=== PATIENT | female | born 1955 | race Caucasian/White ===

== ENCOUNTER 2024-07-08 13:25 | Emergency (ER) | payer MEDICARE, BC, SELFPAY ==
[2024-07-08 13:27] VITALS: BP 154/74; PULSE 106; RESP 18; TEMP 36.6; O2SAT 100
[2024-07-08 14:55] VITALS: BP 124/73; PULSE 90; RESP 16; TEMP 36.8; O2SAT 98
--- NOTE | 2024-07-08 15:22 | EX.ED.UPPERE ---
HPI History of Present Illness Chief Complaint: Wound Informant: patient and spouse/S.O. Narrative Narrative: History rheumatoid arthritis on prednisone and hydroxychloroquine sent to urgent care right elbow redness swelling over the past week. She is no fevers or chills. Denies trauma. Started on the olecranon over the past days spread. Feels warm around the skin. No fevers or chills. She is seeing [facility] for foot surgery this past December. She is sent here from urgent care with concerning septic elbow. Prior similar symptoms: No PFSH PFSH Medical History Hammer toes of both feet Claudication of right upper extremity due to atherosclerosis Home Medications ?Medication ?Instructions ?Recorded ?Last Taken ?Type ascorbic acid (vitamin C) 500 mg 500 mg PO BID 01/03/24 Unknown History chewable tablet ferrous sulfate 325 mg (65 mg 325 mg PO DAILY 01/03/24 Unknown History iron) tablet hydroxychloroquine 100 mg tablet 100 mg PO BID 01/03/24 Unknown History multivitamin with minerals 1 tab PO DAILY 01/03/24 Unknown History (Multiple Vitamin-Minerals tablet) naproxen 500 mg tablet (Naprosyn) 500 mg PO BID PRN 01/03/24 Unknown History pantoprazole 40 mg tablet,delayed 40 mg PO BID 01/03/24 Unknown History release prednisolone 5 mg tablet 5 mg PO DAILY 01/03/24 Unknown History pyridoxine (vitamin B6) 100 mg 100 mg PO DAILY 01/03/24 Unknown History tablet amoxicillin 875 mg-potassium 875 mg PO Q12H #20 TABLETS 07/08/24 Unknown Rx clavulanate 125 mg tablet doxycycline monohydrate 100 mg 100 mg PO BID #20 CAPSULES 07/08/24 Unknown Rx capsule Allergy/AdvReac Type Severity Reaction Status Date / Time No Known Allergies Allergy Verified 07/08/24 13:26 Social History Smoking Status: Never smoker ROS ROS ED Constitutional Constitutional ED: Denies chills, fever(s) or sweats Eyes Eyes: Denies change in vision ENT ENT ED: Denies dysphagia or sore throat Cardiovascular Cardiovascular: Denies chest pain, leg edema, palpitations or racing heartbeat Respiratory/Chest Respiratory/Chest: Denies cough, dyspnea or dyspnea on exertion Gastrointestinal Gastrointestinal: Denies abdominal pain, diarrhea, nausea or vomiting Genitourinary Genitourinary ED: Denies dysuria, hematuria or urinary frequency Musculoskeletal Musculoskeletal: Reports extremity pain; Denies back pain or neck pain Integumentary Denies rash or wounds Neurologic Neurologic: Denies headache(s), paresthesias or weakness EXAM Physical Exam Const Vital Signs: 07/08/24 13:27 07/08/24 14:55 Temperature 97.9 F 98.3 F Temperature Source Temporal Oral Pulse Rate 106 H 90 Respiratory Rate 18 16 Blood Pressure 154/74 H 124/73 H Blood Pressure Mean 100 90 Pulse Ox 100 98 Oxygen Delivery Method Room Air Room Air Positive well nourished and well developed General Appearance ED: well developed and NAD HEENT Reports moist mucous membranes normocephalic and atraumatic Eyes EOMs intact bilaterally and conjunctivae normal General Eye ED: Yes normal appearance of both eyes Neck no lymphadenopathy and supple General: Negative for tenderness Chest Wall Chest: Negative for tenderness Resp normal respiratory effort and normal air movement Effort and Inspection: symmetric chest movement; Negative for respiratory distress Cardio regular rate, regular rhythm and no murmurs Peripheral Pulses: pulses 2+ throughout GI normal to inspection, nondistended, normoactive bowel sounds and non-tender Palpation: Negative for guarding or rebound tenderness present Back/Spine no CVA tenderness and no thoracic nor lumbar tenderness Extremity Extremity Narrative: Right upper extremity: No shoulder tenderness there was swelling at the olecranon bursa there is erythema proximal to the bursa along with distal to the mid forearm. Increasing skin warmth. Full range of motion of the elbow without any pain. Neuro oriented x3 and no sensory deficits noted Sensorium / Orientation: awake and alert Skin no rashes or lesions noted and no wounds MDM MDM MDM Narrative Medical decision making narrative: Interventions / MDM: Differential diagnosis: Olecranon bursitis, cellulitis Diagnosis considered but do not suspect: Septic elbow, however full range of motion without any pain in the joint. My EKG interpretation: N/A Imaging independently reviewed and interpreted by myself: Right elbow 3 views: No acute process, no joint effusion noted. Also read by radiology. External documents reviewed: N/A Test considered but not ordered:N/A ED course: Patient nontoxic. Exam concerns for infected olecranon bursitis she is afebrile however she is immunocompromise with her rheumatoid arthritis on medications. Will check labs with inflammatory markers. Right elbow x-ray. Patient covered with Ancef and vancomycin. Re-evaluation: stable Disposition discussed with patient/family/significant other: Case discussed with consulting clinician: N/A This note was generated with [employer] dictation software. It may contain incorrect words, spelling, and punctuation that were not noted in checking the note before signing. Discharge Plan Triage Chief Complaint: Wound ED Provider: Gerard Ho Dx/Rx/DC Orders Clinical Impression: Olecranon bursitis of right elbow, Cellulitis of forearm, right, History of rheumatoid arthritis Instructions: ED Bursitis Elbow Olecranon Prescriptions: New doxycycline monohydrate 100 mg capsule 100 mg PO BID Qty: 20 0RF amoxicillin-pot clavulanate 875-125 mg tablet 875 mg PO Q12H Qty: 20 0RF Primary Care Provider: HANG FERGUSON Referrals: Kush Schulz MD [Med Staff - Active Staff] - 2 Days HANG FERGUSON DO [Primary Care Provider] - Activity Restrictions/Additional Instructions: X-ray negative. White count of 10. Take antibiotic as prescribed. Discussed with Dr. Schulz in the emergency department. Called follow-up with the office in 2 days. If symptoms worsen or developing fevers, return to the ED for reevaluation. Print Language: Macedonian Disposition Disposition: Home, Self Care
--- NOTE | 2024-07-08 15:25 | RAD_ITS ---
STUDY: X-RAY - RIGHT ELBOW REASON FOR EXAM: Female, 69 years old. infection TECHNIQUE: 3 view(s) of the elbow. COMPARISON: None. FINDINGS: Normal visualized humerus, radius and ulna. Normal radiocapitellar and ulnotrochlear articulations. The soft tissue structures are unremarkable. There is no demonstrated fracture RAD/Elbow min 3 Views IMPRESSION: Normal x-ray examination of the elbow. Electronically Signed: Devin Hatch MD at 16:06 EDT ,
[2024-07-08 15:26] VITALS: BP 125/65; PULSE 88; RESP 18; O2SAT 98
[2024-07-08 15:45] VITALS: BMI 30.7
[2024-07-08 16:00] LABS: Anion Gap 6 (5-15); BUN 16 mg/dL (7-18); BUN/Creat Ratio 21.6 RATIO (10-20); Calcium,Total 9.5 mg/dL (8.5-10.1); Chloride 106 mmol/L (98-107); Creatinine, Serum 0.74 mg/dL (0.55-1.02); EST Glomerular Filtration Rate 83 mL/min (>60); Est Glom Filt Rate - Afr Amer 100 mL/min (>60); Estimated Creatinine Clearance 74.43 ml/min; Glucose 152 mg/dL (74-106); Potassium 4.2 mmol/L (3.5-5.1); Sodium Level 138 mmol/L (136-145)
[2024-07-08] MEDS: Cefazolin 2 GM in 0.9% Normal Saline (100mL Bag) 100 ML IV (16:12)
[2024-07-08 16:36] LABS: Absolute Lymphocyte Count 1.11 X10^3/uL (0.83-4.51); Basophil# 0.04 X10^3/uL; Basophil% 0.4 % (0-1); Eosinophil# 0.05 X10^3/uL; Eosinophils% 0.5 % (0-5); Hematocrit 40.7 % (37-47); Hemoglobin 13.2 g/dL (12.0-15.0); Lymphocyte # 1.11 X10^3/ul (0.83-4.51); Mean Corp Hgb Conc 32.4 g/dL (32-36); Mean Corpuscular Hgb 29.5 pg (27.0-32.0); Mean Corpuscular Volume 91.1 fL (81-99); Mean Platelet Vol. 11.5 fl (6.2-12.0); Monocyte# 0.84 X10^3/uL; Monocyte% 8.3 % (0-10); NRBC Flagged by Analyzer 0 % (0-5); Neutrophil # 8.04 X10^3/uL (2.7-7.7); Neutrophil % 79.4 % (47-70); Platelet Count 263 K/mm3 (150-450); RBC Distribution Width CV 12.7 % (11.6-14.6); RBC Distribution Width SD 42.1 fl (35.1-43.9); Red Blood Count 4.47 M/mm3 (4.2-5.4); White Blood Count 10.1 K/mm3 (4.4-11.0)
[2024-07-08 16:45] LABS: Differential Indicated SCAN CRITERIA MET
[2024-07-08 16:47] LABS: Erythrocyte Sedimentation Rate 32 mm/hr (0-30); Smudge Cells 79.4
[2024-07-08 17:00] VITALS: BP 129/71; PULSE 77; RESP 16; O2SAT 98
[2024-07-08] MEDS: Vancomycin HCl 2,000 MG in 0.9% Normal Saline (500mL Bag) 500 ML 250 MG IV (17:24)
[2024-07-08 18:26] VITALS: BP 124/77; PULSE 82; RESP 16; TEMP 36.7; O2SAT 99
[2024-07-08 19:22] VITALS: BP 121/68; PULSE 71; RESP 16; O2SAT 98
== END 2024-07-08 20:30 | disposition home or self-care (01) ==
PROVIDERS: Emergency Provider Emergency Medicine; PCP Family Medicine; Visit Provider Emergency Medicine
DX: Z79.899 Other long term (current) drug therapy (principal); M06.9 Rheumatoid arthritis, unspecified; L03.113 Cellulitis of right upper limb; M70.21 Olecranon bursitis, right elbow; Z79.52 Long term (current) use of systemic steroids
CPT/HCPCS: 73080; 80048; 85025; 85652; 86140; 96365; 96366; 96368; 99283; J7040; J7050; A4216

== ENCOUNTER 2025-02-01 12:10 | Observation (INO) | payer MEDICARE, BC, SELFPAY ==
[2025-02-01] VITALS (8 sets, daily range): BP systolic 116–164; BP diastolic 67–90; PULSE 65–83; RESP 14–20; TEMP 36.5–36.7; O2SAT 96–98; BMI 31.2; BMI 31.1
--- NOTE | 2025-02-01 12:38 | EDS_ITS ---
HPI <BLAIRE Larkin - Last Filed: 02/01/25 15:26> History of Present Illness Chief Complaint: Dizziness Narrative Narrative: Patient presenting today with dizziness that she describes as a room spinning sensation that started when she got out of bed at 5 AM this morning. She reports that last night she felt fine. She denies any history of vertigo or stroke. She reports that her symptoms are provoked when she tries to ambulate. She denies tinnitus and hearing loss. She reports that her right ear feels clogged. She denies recent illness, fevers, chills. She has a PMH of RA and GERD. PFSH <BLAIRE Larkin - Last Filed: 02/01/25 15:26> PFSH Medical History Hammer toes of both feet Claudication of right upper extremity due to atherosclerosis Home Medications ?Medication ?Instructions ?Recorded ?Last Taken ?Type ferrous sulfate 325 mg (65 mg 325 mg PO DAILY 01/03/24 02/01/25 History iron) tablet hydroxychloroquine 100 mg tablet 100 mg PO BID 4 02/01/25 History naproxen 500 mg tablet (Naprosyn) 500 mg PO BID 02/01/25 History MODUCARE 1 tab PO TID SUPPLEMENT 03/2302/01/25 History ascorbate calcium (vitamin C) 500 1 g PO DAILY 5 02/01/25 History mg tablet omeprazole 20 mg capsule,delayed 20 mg PO BID 02/01/25 02/01/25 History release prednisone 5 mg tablet 5 mg PO DAILY 02/01/2502/01 History vitamin E 268 mg (400 unit) capsule 268 mg PO DAILY Unknown History Allergy/AdvReac Type Severity Reaction Status Date / Time No Known Allergies Allergy Verified 02/01/25 12:11 Social History Smoking Status: Never smoker ROS <BLAIRE Larkin - Last Filed: 02/01/25 15:26> ROS ED Constitutional Constitutional ED: Denies chills or fever(s) ENT ENT ED: Reports vertigo and other Details: R sided ear fullness ; Denies hearing loss or tinnitus Cardiovascular Cardiovascular: Denies chest pain Respiratory/Chest Respiratory/Chest: Denies dyspnea Gastrointestinal Gastrointestinal: Reports nausea; Denies abdominal pain or vomiting Musculoskeletal Musculoskeletal: Denies arthralgias or myalgias Integumentary Denies rash Neurologic Neurologic: Reports dizziness; Denies paresthesias or weakness EXAM <BLAIRE Larkin - Last Filed: 02/01/25 15:26> Physical Exam Const Vital Signs: 02/01/25 12:11 02/01/25 13:04 02/01/25 14:00 Temperature 98.1 F Temperature Source Temporal Pulse Rate 81 70 Pulse Rate [Lying] 70 Pulse Rate [Sitting (for 1 minute prior to obtaining)] 81 Pulse Rate [Standing (for 1 minute prior to obtaining)] 82 Respiratory Rate 14 17 Blood Pressure 116/81 H 132/69 H Blood Pressure [Lying] 136/72 H Blood Pressure [Sitting (for 1 minute prior to obtaining)] 164/79 H Blood Pressure [Standing (for 1 minute prior to obtaining)] 145/81 H Blood Pressure Mean 92 90 Blood Pressure Mean [Lying] 93 Blood Pressure Mean [Sitting (for 1 minute prior to obtaining)] 107 Blood Pressure Mean [Standing (for 1 minute prior to obtaining)] 102 Pulse Ox 98 98 Oxygen Delivery Method Room Air 02/01/25 15:35 Temperature 98.1 F Temperature Source Pulse Rate 69 Pulse Rate [Lying] Pulse Rate [Sitting (for 1 minute prior to obtaining)] Pulse Rate [Standing (for 1 minute prior to obtaining)] Respiratory Rate 20 H Blood Pressure 129/81 H Blood Pressure [Lying] Blood Pressure [Sitting (for 1 minute prior to obtaining)] Blood Pressure [Standing (for 1 minute prior to obtaining)] Blood Pressure Mean 97 Blood Pressure Mean [Lying] Blood Pressure Mean [Sitting (for 1 minute prior to obtaining)] Blood Pressure Mean [Standing (for 1 minute prior to obtaining)] Pulse Ox 96 Oxygen Delivery Method Positive well nourished, well developed and no apparent distress General Appearance ED: well developed HEENT Reports normocephalic, head/scalp atraumatic and TM's clear Tympanic Membrane ED: Yes TM's clear bilateral Mouth ED: Yes moist mucous membranes normal Eyes PERRL and EOMs intact bilaterally Neck full ROM and supple Chest Wall inspection of chest normal Resp normal respiratory effort and clear to auscultation bilaterally Cardio regular rate and regular rhythm GI soft to palpation, non-tender, non-distended and no masses Back/Spine normal ROM and normal to inspection Extremity normal to inspection and full ROM Neuro oriented x3, CN's II-XII intact bilaterally, moves all extremities, no focal motor deficits and no sensory deficits noted Neuro Narrative: No truncal ataxia, negative test of skew, NIH 0 Sensorium / Orientation: awake and alert Motor Exam: strength 5/5 throughout Psych mental status grossly normal and thought process normal Skin no rashes or lesions noted and no wounds <Dr. Antonio Rhoades DO - Last Filed: 02/01/25 16:27> Physical Exam Const Vital Signs: 02/01/25 12:11 02/01/25 13:04 02/01/25 14:00 Temperature 98.1 F Temperature Source Temporal Pulse Rate 81 70 Pulse Rate [Lying] 70 Pulse Rate [Sitting (for 1 minute prior to obtaining)] 81 Pulse Rate [Standing (for 1 minute prior to obtaining)] 82 Respiratory Rate 14 17 Blood Pressure 116/81 H 132/69 H Blood Pressure [Lying] 136/72 H Blood Pressure [Sitting (for 1 minute prior to obtaining)] 164/79 H Blood Pressure [Standing (for 1 minute prior to obtaining)] 145/81 H Blood Pressure Mean 92 90 Blood Pressure Mean [Lying] 93 Blood Pressure Mean [Sitting (for 1 minute prior to obtaining)] 107 Blood Pressure Mean [Standing (for 1 minute prior to obtaining)] 102 Pulse Ox 98 98 Oxygen Delivery Method Room Air 02/01/25 15:35 Temperature 98.1 F Temperature Source Pulse Rate 69 Pulse Rate [Lying] Pulse Rate [Sitting (for 1 minute prior to obtaining)] Pulse Rate [Standing (for 1 minute prior to obtaining)] Respiratory Rate 20 H Blood Pressure 129/81 H Blood Pressure [Lying] Blood Pressure [Sitting (for 1 minute prior to obtaining)] Blood Pressure [Standing (for 1 minute prior to obtaining)] Blood Pressure Mean 97 Blood Pressure Mean [Lying] Blood Pressure Mean [Sitting (for 1 minute prior to obtaining)] Blood Pressure Mean [Standing (for 1 minute prior to obtaining)] Pulse Ox 96 Oxygen Delivery Method MDM <BLAIRE Larkin - Last Filed: 02/01/25 15:26> [facility] MDM Narrative Medical decision making narrative: Patient presenting today with dizziness that started around 5 AM when she woke up to go to the bathroom. She reports that it is provoked with ambulation. I did perform a Crescent-Hallpike maneuver on her, she was positive on the left, I did see slight brief nystagmus but it is hard to say what direction it was going. She was negative on the right, I then performed the maneuver again on the left and she was then negative. She had a negative test of skew, otherwise NIH 0. The attending ED physician did have a different exam and had a positive Crescent- Hallpike on the right but again she was inconsistent. Given this, head CT/neck CTA will be obtained to assess for intracranial abnormality. Basic labs will be obtained. Patient will be given IV fluids and meclizine. Orthostatic vital signs will be obtained prior to fluid resuscitation. Her CBC, BMP, troponin, and UA are unremarkable. CT/CTA negative for acute findings. On reexamination she does report some improvement of her symptoms, however she does still feel slightly dizzy. I did ambulate her in the room and she reported feeling somewhat off balance but improved with the meclizine and fluids. When walking to the bathroom she did hit the door frame with her shoulder, however the remainder of her walking was without ataxia. Given we cannot definitively say this is peripheral I do feel she would benefit from further workup for her vertigo. I spoke with hospitalist and patient admitted in stable condition. Supervisory Physician Note Patient was seen and examined with the Advanced Practice Provider. Nursing notes and vital signs have been reviewed. Pertinent old records have been reviewed. I agree with the essential elements of the MERISSA's history, physical exam, assessment, and plan. The differential diagnosis and management options were discussed with the MERISSA. I participated in determining and agree with the management, procedures, final impression and disposition as documented. See changes noted by me. Please see addendum or separate note for any additional details. 83-year-old female with past medical history GERD, rheumatoid arthritis on prednisone and hydroxychloroquine presents for evaluation of dizziness. Last known normal was approximately 10 PM last night when she went to bed. Patient states that she woke up this morning with room spinning. She states since then the room spinning has resolved and now she describes more of a wavelike dizziness. Dizziness is associated with ambulation and movement. She denies any fever, chills, URI symptoms, cough, chest pain, Markel pain, nausea, vomiting, dysuria. Endorses acid reflux. Denies any focal deficits, numbness/tingling, weakness, hearing loss, tinnitus, vision changes. Gen: A&O x3, NAD Head: Normocephalic, atraumatic Eyes: No sclera icterus, conjunctiva clear, PERRL, EOMI ENT: Tympanic membranes clear bilaterally, posterior oropharynx unremarkable, moist mucous membranes, No facial asymmetry Neck: Trachea midline, No JVD, no carotid bruit CV: RRR, no murmurs, no peripheral edema Resp: Lungs CTA BL, no w/r/c GI: Abd soft, non-distended, non-tender, no r/r/g Musc: Full ROM, no deformity, strength +5/5 in all extremities, no pronator drift, no ataxia with [id number] testing or max to heel testing, patient is unsteady on her feet with ambulation she states she feels like she is walking on a wave she sways left and right periodically and it is not consistent or one- sided Skin: Warm, dry, intact Neuro: Alert, oriented, grossly intact, sensation intact, no focal deficits Psych: Cooperative, appropriate mood and affect -When being changed from a sitting to lying down position patient endorses dizziness however no nystagmus. Dizziness quickly resolves. Once when I had her lying down and looking to the right she did have what appeared to be slight leftward beating nystagmus which she felt like she was swaying to the right however this quickly resolved and was not reproducible again on exam. Exam is inconsistent. On PA's exam she had what she thought was slight nystagmus when head turned to the left. Was not reproducible again for her as well. Lab Data Attestation: I reviewed the patient's lab results. Labs: Laboratory Results - last 24 hr 02/01/25 02/01/25 13:05 13:16 WBC 7.2 RBC 4.41 Hgb 13.1 Hct 39.7 MCV 90.0 MCH 29.7 MCHC 33.0 RDW Std Deviation 42.6 RDW Coeff of Emmanuel 12.9 Plt Count 272 MPV 10.7 Immature Gran % (Auto) 0.300 Neut % (Auto) 78.5 H Lymph % (Auto) 12.3 L Hand % (Auto) 6.6 Eos % (Auto) 1.7 Baso % (Auto) 0.6 Absolute Neuts (auto) 5.6 Absolute Lymphs (auto) 0.88 Nucleated RBC % 0 Sodium 140 Potassium 4.4 Chloride 106 Carbon Dioxide 22.9 Anion Gap 11 BUN 15 Creatinine 0.81 Estim Creat Clear Calc 74.23 Est GFR (MDRD) Non-Af 79 BUN/Creatinine Ratio 18.2 Glucose 97 Calcium 9.3 Troponin T High Sens 9 Urine Color Straw Urine Clarity Clear Urine pH 7.0 Ur Specific [place] 1.005 Urine Protein 15 H Urine Glucose (UA) Normal Urine Ketones Negative Urine Occult Blood Negative Urine Nitrite Negative Urine Bilirubin Negative Urine Urobilinogen Normal Ur Leukocyte Esterase 500 H Urine RBC 0-5 SEEN Urine WBC 5-10 SEEN Ur Squamous Epith Cells 0 SEEN Urine Bacteria RARE Urine Mucus 0 SEEN Radiography X-Ray: Read by ED Physician Diagnostic Testing: Clinical Impression(s) from Imaging Studies Brain CT 02/01/25 12:48 IMPRESSION: 1. No acute intracranial finding. 2. Findings compatible with acute left maxillary sinusitis. Reading Location: [facility] Head/Neck CTA 02/01/25 12:48 IMPRESSION: 1. No hemodynamically significant large vessel occlusion, aneurysm or AVM. 2. 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 Reading Location: [facility] Chest X-Ray 02/01/25 13:45 IMPRESSION: No acute process. Reading [facility] EKG Initial EKG: Comments: 60 bpm, normal sinus rhythm, no ST elevation, interpreted by attending ED physician <Dr. Antonio Rhoades, DO - Last Filed: 02/01/25 16:27> [facility] Narrative Medical decision making narrative: Patient presenting today with dizziness that started around 5 AM when she woke up to go to the bathroom. She reports that it is provoked with ambulation. I did perform a Umberto-Hallpike maneuver on her, she was positive on the left, I did see slight brief nystagmus but it is hard to say what direction it was going. She was negative on the right, I then performed the maneuver again on the left and she was then negative. She had a negative test of skew, otherwise NIH 0. The attending ED physician did have a different exam and had a positive Umberto- Hallpike on the right but again she was inconsistent. Given this, head CT/neck CTA will be obtained to assess for intracranial abnormality. Basic labs will be obtained. Patient will be given IV fluids and meclizine. Orthostatic vital signs will be obtained prior to fluid resuscitation. Her CBC, BMP, troponin, and UA are unremarkable. CT/CTA negative for acute findings. On reexamination she does report some improvement of her symptoms, however she does still feel slightly dizzy. I did ambulate her in the room and she reported feeling somewhat off balance but improved with the meclizine and fluids. When walking to the bathroom she did hit the door frame with her shoulder, however the remainder of her walking was without ataxia. Given we cannot definitively say this is peripheral I do feel she would benefit from further workup for her vertigo. I spoke with hospitalist and patient admitted in stable condition. Supervisory Physician Note Patient was seen and examined with the Advanced Practice Provider. Nursing notes and vital signs have been reviewed. Pertinent old records have been reviewed. I agree with the essential elements of the MERISSA's history, physical exam, assessment, and plan. The differential diagnosis and management options were discussed with the MERISSA. I participated in determining and agree with the management, procedures, final impression and disposition as documented. See changes noted by me. Please see addendum or separate note for any additional details. 83-year-old female with past medical history GERD, rheumatoid arthritis on prednisone and hydroxychloroquine presents for evaluation of dizziness. Last known normal was approximately 10 PM last night when she went to bed. Patient states that she woke up this morning with room spinning. She states since then the room spinning has resolved and now she describes more of a wavelike dizz iness. Dizziness is associated with ambulation and movement. She denies any fever, chills, URI symptoms, cough, chest pain, Markel pain, nausea, vomiting, dysuria. Endorses acid reflux. Denies any focal deficits, numbness/tingling, weakness, hearing loss, tinnitus, vision changes. Gen: A&O x3, NAD Head: Normocephalic, atraumatic Eyes: No sclera icterus, conjunctiva clear, PERRL, EOMI ENT: Tympanic membranes clear bilaterally, posterior oropharynx unremarkable, moist mucous membranes, No facial asymmetry Neck: Trachea midline, No JVD, no carotid bruit CV: RRR, no murmurs, no peripheral edema Resp: Lungs CTA BL, no w/r/c GI: Abd soft, non-distended, non-tender, no r/r/g Musc: Full ROM, no deformity, strength +5/5 in all extremities, no pronator drift, no ataxia with [id number] testing or max to heel testing, patient is unsteady on her feet with ambulation she states she feels like she is walking on a wave she sways left and right periodically and it is not consistent or one-si ded Skin: Warm, dry, intact Neuro: Alert, oriented, grossly intact, sensation intact, no focal deficits Psych: Cooperative, appropriate mood and affect -When being changed from a sitting to lying down position patient endorses dizziness however no nystagmus. Dizziness quickly resolves. Once when I had her lying down and looking to the right she did have what appeared to be slight leftward beating nystagmus which she felt like she was swaying to the right however this quickly resolved and was not reproducible again on exam. Exam is inconsistent. On PA's exam she had what she thought was slight nystagmus when head turned to the left. Was not reproducible again for her as well. Differential diagnosis includes but is not limited to orthostatic hypotension, dehydration, BRITTON, vertigo, posterior CVA, arrhythmia, ACS, UTI. Orthostatic vital signs were obtained. NS bolus ordered with meclizine and Zofran. EKG was personally reviewed by me, ED physician. Normal sinus rhythm without any acute changes. Heart rate 68. Chest x-ray was personally reviewed by me, ED physician. Without pneumonia, effusion, electrolyte abnormality, pneumothorax. CBC without leukocytosis or anemia. BMP unremarkable. Troponin unremarkable. UA negative for UTI. CT brain negative for acute intercranial finding. Finding are compatible with acute left maxillary sinusitis. Patient not endorsing any sinus pressure or URI type symptoms. This does not correlate clinically. CTA of the head and neck shows no LVO, aneurysm, or AVM. Patient has a for short segment occlusion of the left subclavian artery just distal to its origin with distal reconstruction, appears chronic in nature. On reevaluation, patient states her symptoms have improved however still present. She ambulated down the hallway and is still endorsing some dizziness. She states she is not at her baseline. She is also endorsing some posterior head pressure. At this point in time we cannot definitively say if this is peripheral. I do think she would benefit from further workup for her dizziness/vertigo. After long discussion with the patient as well as her , patient agrees to the plan. Patient admitted to the hospitalist service. Impression: 1. Dizziness Lab Data Labs: Laboratory Results - last 24 hr 02/01/25 02/01/25 13:05 13:16 WBC 7.2 RBC 4.41 Hgb 13.1 Hct 39.7 MCV 90.0 MCH 29.7 MCHC 33.0 RDW Std Deviation 42.6 RDW Coeff of Emmanuel 12.9 Plt Count 272 MPV 10.7 Immature Gran % (Auto) 0.300 Neut % (Auto) 78.5 H Lymph % (Auto) 12.3 L Hand % (Auto) 6.6 Eos % (Auto) 1.7 Baso % (Auto) 0.6 Absolute Neuts (auto) 5.6 Absolute Lymphs (auto) 0.88 Nucleated RBC % 0 Sodium 140 Potassium 4.4 Chloride 106 Carbon Dioxide 22.9 Anion Gap 11 BUN 15 Creatinine 0.81 Estim Creat Clear Calc 74.23 Est GFR (MDRD) Non-Af 79 BUN/Creatinine Ratio 18.2 Glucose 97 Calcium 9.3 Troponin T High Sens 9 Urine Color Straw Urine Clarity Clear Urine pH 7.0 Ur Specific [place] 1.005 Urine Protein 15 H Urine Glucose (UA) Normal Urine Ketones Negative Urine Occult Blood Negative Urine Nitrite Negative Urine Bilirubin Negative Urine Urobilinogen Normal Ur Leukocyte Esterase 500 H Urine RBC 0-5 SEEN Urine WBC 5-10 SEEN Ur Squamous Epith Cells 0 SEEN Urine Bacteria RARE Urine Mucus 0 SEEN Radiography Diagnostic Testing: Clinical Impression(s) from Imaging Studies Brain CT 02/01/25 12:48 IMPRESSION: 1. No acute intracranial finding. 2. Findings compatible with acute left maxillary sinusitis. Reading Location: [facility] Head/Neck CTA 02/01/25 12:48 IMPRESSION: 1. No hemodynamically significant large vessel occlusion, aneurysm or AVM. 2. 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 Reading Location: [facility] Chest X-Ray 02/01/25 13:45 IMPRESSION: No acute process. Reading [facility] Discharge Plan Dx/Rx/DC Orders Clinical Impression: Dizziness Disposition Disposition: Acute Care Hospital [facility] Discharge Date/Time: 02/01/25 16:25
--- NOTE | 2025-02-01 12:48 | CT_ITS ---
EXAM: BRAIN/HEAD WITHOUT CONTRAST CLINICAL HISTORY: 69 y/o F with DIZZINESS. COMPARISON: None. TECHNIQUE: Routine CT imaging of the head without IV contrast. Additional multiplanar reformats were obtained. Dose reduction techniques were used including intermediate exposure control (AEC),iterative reconstruction technique, and/or mA and/or KV dose adjustments based on patient's size. FINDINGS: The ventricles, sulci and cisterns are normal for patient age. There is no evidence of intracranial hemorrhage or herniation. There is no midline shift, mass effect, or extra-axial collection. Mild patchy supratentorial white matter hypodensities. The shell-white matter interfaces are otherwise maintained. Near-complete opacification with layering secretions within the left maxillary sinus. Additional opacification of the left maxillary ostium the mastoid air cells and visualized paranasal sinuses are otherwise well-aerated. The orbits are unremarkable. No acute calvarial fracture or scalp hematoma. CT/Brain/Head without Contrast IMPRESSION: 1. No acute intracranial finding. 2. Findings compatible with acute left maxillary sinusitis. Reading Location: [id number]
--- NOTE | 2025-02-01 12:48 | CT_ITS ---
PROCEDURE: CTA HEAD AND NECK W/ CONTRAST 02/01/2025 REASON FOR EXAM: DIZZINESS TECHNIQUE: CTA imaging of the head and neck from the aortic arch to the skull vertex with intravenous contrast. Coronal and Sagittal reconstruction series were provided. 3D, 3D post processing, 3D reconstructions, Maximum intensity projection (MIPs) Volume rendering and Shaded surface rendering was provided. CONTRAST: Isovue 370 VOLUME: 100 mL One or more dose reduction techniques were used (e.g., Automated exposure control, adjustment of the mA and/or kV according to patient size, use of iterative reconstruction technique). RADIATION DOSE SUMMARY: CTDlvol: 60 mGy DLP: 1500 mGycm COMPARISON: Same day CT head. FINDINGS: Three-vessel aortic arch with short-segment non-opacification of the left subclavian artery just off the arch origin measuring approximately 1.2 cm (coronal image 58). There is distal reconstitution via retrograde filling. Mild calcific plaque of the right vertebral artery office origin without focal stenosis or occlusion. The bilateral vertebral arteries are widely patent. The right cervical common carotid and internal carotid arteries are widely patent without focal stenosis by NASCET criteria. Mild calcific plaque of the left carotid bulb and ICA resulting in less than 50% narrowing by NASCET criteria. Mild calcific plaque of the bilateral carotid siphons without focal stenosis or occlusion. The bilateral anterior, middle and posterior cerebral arteries are widely patent. No aneurysm or arteriovenous malformation. Major venous structures: Unremarkable. Other findings: Cervical spondylosis. CT/CTA Head AND Neck W/ Contrast IMPRESSION: 1. No hemodynamically significant large vessel occlusion, aneurysm or AVM. 2. 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 Reading Location: [id number]
--- NOTE | 2025-02-01 12:51 | EKG12_ITS ---
Test Reason : DIZZINESS Blood Pressure : */* mmHG Vent. Rate : 68 BPM Atrial Rate : 68 BPM P-R Int : 152 ms QRS Dur : 76 ms QT Int : 398 ms P-R-T Axes : 39 6 35 degrees QTcB Int : 423 ms Normal sinus rhythm Normal ECG Confirmed by ZAK HENRIQUEZ, ANA ([id number]), editor school photograph DAPHNE NUÑEZ ([id number]) on 02/03/2025 5:59:29 AM Referred By: Antonio Rhoades Confirmed By: ANA CRESPO MD
[2025-02-01] MEDS: Meclizine HCl 25 MG Tablet PO (12:54)
[2025-02-01] MEDS: Ondansetron 4 MG/2 ML Vial IV (12:55)
[2025-02-01] MEDS: 0.9% Normal Saline (1000mL) 1,000 ML 1000 ML IV (12:57)
[2025-02-01 13:12] LABS: Absolute Lymphocyte Count 0.88 X10^3/uL (0.83-4.51); Absolute Neutrophil Count 5.6 X10^3/uL (2.0-7.7); Basophil# 0.04 X10^3/uL; Basophil% 0.6 % (0-1); Eosinophil# 0.12 X10^3/uL; Eosinophils% 1.7 % (0-5); Hematocrit 39.7 % (37-47); Hemoglobin 13.1 g/dL (12.0-15.0); Lymphocyte # 0.88 X10^3/ul (0.83-4.51); Lymphocyte % 12.3 % (19-41); Mean Corpuscular Hgb 29.7 pg (27.0-32.0); Mean Platelet Vol. 10.7 fl (6.2-12.0); Monocyte# 0.47 X10^3/uL; Monocyte% 6.6 % (0-10); NRBC Flagged by Analyzer 0 % (0-5); Neutrophil # 5.63 X10^3/uL (2.7-7.7); Neutrophil % 78.5 % (47-70); Platelet Count 272 K/mm3 (150-450); RBC Distribution Width CV 12.9 % (11.6-14.6); RBC Distribution Width SD 42.6 fl (35.1-43.9); Red Blood Count 4.41 M/mm3 (4.2-5.4); White Blood Count 7.2 K/mm3 (4.4-11.0)
[2025-02-01 13:21] LABS: Mucous, Urine 0 SEEN /hpf (<or=2+); Squamous Epithelial Cells - UA 0 SEEN /hpf (5-10)
[2025-02-01 13:23] LABS: Color, Urine Straw (Yellow); Glucose, Dipstick Normal (Normal); Ketone-Dipstick Negative (Negative); Leukocyte Esterase-Dipstick 500 /ul (Negative); Nitrite-Dipstick Negative (Negative); Occult Blood-Urine Negative /ul (Negative); Protein-Dipstick 15 mg/dl (Negative); Specific Gravity, Urine 1.005 (1.002-1.030); Urine Bilirubin Dipstick Negative (Negative); Urine Clarity Clear (Clear); Urine Urobilinogen Normal (Normal)
[2025-02-01 13:31] LABS: Troponin T High Sensitivity 9 ng/L (<=14)
[2025-02-01 13:32] LABS: Anion Gap 11 (5-15); BUN 15 mg/dL (4-19); BUN/Creat Ratio 18.2 RATIO (10-20); Calcium,Total 9.3 mg/dL (7.6-11.0); Carbon Dioxide 22.9 mmol/L (21.0-32.0); Chloride 106 mmol/L (98-108); Creatinine, Serum 0.81 mg/dL (0.70-1.20); EST Glomerular Filtration Rate 79 (>60); Estimated Creatinine Clearance 74.23 ml/min (50-250); Glucose 97 mg/dL (70-99); Potassium 4.4 mmol/L (3.3-5.1); Sodium Level 140 mmol/L (133-145)
[2025-02-01] MEDS: Famotidine 200 MG/20 ML MDV 20 MG in 0.9% Normal Saline (Pres. free 8 ML 300 MG IV (13:32)
--- NOTE | 2025-02-01 13:45 | RAD_ITS ---
PROCEDURE: CHEST PA AND LATERAL 02/01/2025 REASON FOR EXAM: DIZZINESS TECHNIQUE: Frontal and lateral views of the chest. COMPARISON: None. FINDINGS: Hardware: None. Heart: Normal size and appearance Mediastinum: Normal contour Lungs: Lungs are clear. No interstitial thickening. Bones: Unremarkable RAD/Chest PA and Lateral IMPRESSION: No acute process. Reading [facility]
[2025-02-01 13:56] LABS: Bacteria RARE /hpf (None Seen); Red Blood Cells-Urine 0-5 SEEN /hpf (0-5); White Blood Cells 5-10 SEEN /hpf (0-5)
--- NOTE | 2025-02-01 15:20 | PCM.HP.STD ---
HPI - General General Date of Admission: 02/01/25 Date of Service: 02/01/25 Chief Complaint: dizziness HPI Narrative KAREN CAMERON, is a 69 F with a PMH as outlined who presents via the ED on 02/01/2025 with a complaint of dizziness which started on the morning of admission at ~ 5am. She described it as the room spinning around. She did not have any such history of dizziness. She denied any history of stroke. She denied any headache, palpitations, dizziness, nausea, vomiting, blurred vision, slurred speech, numbness, tingling or any other symptoms. She has not had any such symptoms before. She said it did worsen with position. Review of systems is otherwise negative. Vitals in the ED were BP of 132/69, MA of 70, RR of 17 and oxygen sats of 98% on room air. CT of the brain showed no acute intracranial pathology. 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 CBC showed Hb of 13.1, wbc of 7.2, and platelets of 272. Chemistry showed sodium of 140, potassium of 4.4 and bicarb of 22.9. Cr was 0.81. EKG showed no acute ST changes and showed normal sinus rhythm. She is being admitted to be managed for dizziness and vertigo to rule out a stroke. [facility] Medical History Hammer toes of both feet Claudication of right upper extremity due to atherosclerosis Home Medications ?Medication ?Instructions ?Recorded ?Last Taken ?Type ferrous sulfate 325 mg (65 mg 325 mg PO DAILY 01/03/24 02/01/25 History iron) tablet hydroxychloroquine 100 mg tablet 100 mg PO BID 01/03/24 02/01/25 History naproxen 500 mg tablet (Naprosyn) 500 mg PO BID 01/03/24 02/01/25 History MODUCARE 1 tab PO TID SUPPLEMENT 02/01/25 02/01/25 History ascorbate calcium (vitamin C) 500 1 g PO DAILY 02/01/25 02/01/25 History mg tablet omeprazole 20 mg capsule,delayed 20 mg PO BID 02/01/25 02/01/25 History release prednisone 5 mg tablet 5 mg PO DAILY 02/01/25 02/01/25 History vitamin E 268 mg (400 unit) capsule 268 mg PO DAILY 02/01/25 Unknown History Allergy/AdvReac Type Severity Reaction Status Date / Time No Known Allergies Allergy Verified 02/01/25 12:11 Social History Smoking Status: Never smoker ROS Review of Systems ROS Unobtainable: Denies due to encephalopathy Constitutional Constitutional: Denies anorexia, chills, fatigue, fever(s), malaise or weakness Eyes Eyes: Denies change in vision ENT HEENT: Denies dysphagia, headache(s) or sore throat Cardiovascular Cardiovascular: Reports lightheadedness; Denies chest pain, dyspnea on exertion, edema, orthopnea, palpitations, paroxysmal nocturnal dyspnea, rapid heart rate or syncope Respiratory/Chest Respiratory/Chest: Denies cough, dyspnea, productive cough, shortness of breath at rest or shortness of breath with exertion Gastrointestinal Gastrointestinal: Denies abdominal pain, constipation, diarrhea, nausea or vomiting Genitourinary Genitourinary: Denies burning urination or dysuria Musculoskeletal Musculoskeletal: Denies arthralgias Neurologic Neurologic: Reports dizziness; Denies confusion, focal weakness, headache(s), numbness, seizure-like activity, seizures or syncope Psychiatric Psychiatric: Denies anxiety or depression Endocrine Endocrinology: Denies change in body appearance Hematologic/Lymphatic Hematologic/Lymphatic: Denies anemia Vital Signs Vital Signs Vital Signs: 02/01/25 12:11 02/01/25 13:04 02/01/25 14:00 Temperature 98.1 F Temperature Source Temporal Pulse Rate 81 70 Pulse Rate [Lying] 70 Pulse Rate [Sitting (for 1 minute prior to obtaining)] 81 Pulse Rate [Standing (for 1 minute prior to obtaining)] 82 Respiratory Rate 14 17 Blood Pressure 116/81 H 132/69 H Blood Pressure [Lying] 136/72 H Blood Pressure [Sitting (for 1 minute prior to obtaining)] 164/79 H Blood Pressure [Standing (for 1 minute prior to obtaining)] 145/81 H Blood Pressure Mean 92 90 Blood Pressure Mean [Lying] 93 Blood Pressure Mean [Sitting (for 1 minute prior to obtaining)] 107 Blood Pressure Mean [Standing (for 1 minute prior to obtaining)] 102 Pulse Ox 98 98 Oxygen Delivery Method Room Air Weight Weight: 193 lb 12.581 oz Body Mass Index (BMI) 31.2 Physical Exam Const alert, oriented x3 and no apparent distress General Appearance: cooperative HEENT normocephalic, head/scalp atraumatic, hearing grossly normal bilaterally, moist oral mucous membranes and oropharynx normal Mouth: oral and palatal mucosa normal Eyes PERRL, EOMs intact bilaterally and conjunctivae normal Neck no lymphadenopathy and supple Resp normal respiratory effort, no retractions, no use of accessory muscles and clear to auscultation bilaterally Cardio regular rate, regular rhythm, S1 normal heart sound, S2 normal heart sound and no murmurs GI normal to inspection, nondistended, normoactive bowel sounds, soft to palpation, non-tender and non-distended Extremity normal to inspection, full ROM and no clubbing, cyanosis or edema Neuro oriented x3, CN's II-XII intact bilaterally, moves all extremities and no focal motor deficits Sensorium / Orientation: awake and alert Motor Exam: strength 5/5 throughout Psych affect normal Results Lab / Micro Data 02/02/25 03:19 02/02/25 03:19 Labs: Laboratory Results - last 24 hr 02/01/25 13:05: WBC 7.2, RBC 4.41, Hgb 13.1, Hct 39.7, MCV 90.0, MCH 29.7, MCHC 33.0, RDW Std Deviation 42.6, RDW Coeff of Emmanuel 12.9, Plt Count 272, MPV 10.7, Immature Gran % (Auto) 0.300, Neut % (Auto) 78.5 H, Lymph % (Auto) 12.3 L, [place] % (Auto) 6.6, Eos % (Auto) 1.7, Baso % (Auto) 0.6, Absolute Neuts (auto) 5.6, Absolute Lymphs (auto) 0.88, Nucleated RBC % 0, Sodium 140, Potassium 4.4, Chloride 106, Carbon Dioxide 22.9, Anion Gap 11, BUN 15, Creatinine 0.81, Estim Creat Clear Calc 74.23, Est GFR (MDRD) Non-Af 79, BUN/Creatinine Ratio 18.2, Glucose 97, Calcium 9.3, Troponin T High Sens 9 02/01/25 13:16: Urine Color Straw, Urine Clarity Clear, Urine pH 7.0, Ur Specific [place] 1.005, Urine Protein 15 H, Urine Glucose (UA) Normal, Urine Ketones Negative, Urine Occult Blood Negative, Urine Nitrite Negative, Urine Bilirubin Negative, Urine Urobilinogen Normal, Ur Leukocyte Esterase 500 H, Urine RBC 0-5 SEEN, Urine WBC 5-10 SEEN, Ur Squamous Epith Cells 0 SEEN, Urine Bacteria RARE, Urine Mucus 0 SEEN Imaging Radiology Impression Brain CT 02/01/25 12:48 IMPRESSION: 1. No acute intracranial finding. 2. Findings compatible with acute left maxillary sinusitis. Reading Location: [facility] Head/Neck CTA 02/01/25 12:48 IMPRESSION: 1. No hemodynamically significant large vessel occlusion, aneurysm or AVM. 2. 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 Reading Location: [facility] Chest X-Ray 02/01/25 13:45 IMPRESSION: No acute process. Reading [facility] Assessment & Plan Assessment/Plan (1) Dizziness: PLAN: Plan #Dizziness and vertigo, to rule out a stroke admit to PCU under observation started feeling dizzy at ~ 5am this morning. [place] like everything was spinning around her. She has not had such symptoms before and denies any history of a stroke. CT of the brain showed no acute intracranial pathology. CTA of the head and neck showed no hemodynamically significant stenosis. Order MRI of the brain per stroke protocol. Monitor NIH stroke scale P.o. aspirin 81 mg daily. Check lipid panel and A1c. High intensity statin. Get 2D echo. consult neurology #Rheumatoid arthritis: On hydroxychloroquine and prednisone. Also on pyridoxine. #GERD: On PPI Acute prophylaxis: SCDs CODE STATUS:full code patient and advised about different types of code status, including full code, DNRCC and DNRCCA. Patient elects to be full code Charges/Coding Visit Charges Inpatient E&M: 92025 Init Hosp L2 Procedures Hospitalists Procedures: 39471 Advncd Care Plan 30 Min
--- NOTE | 2025-02-01 16:20 | CASEMGMT ---
Care Management Face to Face with patient for initial transition planning/care coordination assessment in the ED.? This telegraphic typewriter repairer introduced self and role at [facility]. Patient alert and oriented. Patient willing to participate in assessment and is able to answer all questions appropriately.? Care providers, pharmacy, and demographics verified. Patient?s at patient?s bedside. Admitting Diagnosis: Dizziness Other diagnosis history: Including but may not be limited to: Claudication of right upper extremity due to atherosclerosis. PCP: Dr. Bozena Sweet Specialists: None Preferred Pharmacy: [facility] Insurance: Medicare, Part A and B and [place]. Prescription Benefit: Well [employer] Living Will/HPOA: ?Patient denied having a Living Will but stated a preference of being a full-code and identified her , twin as her POA however stated she does not know where the paperwork is at this time.? Patient denied a desire to complete Advanced Care Directives during this admission. LNOK: Patient?s , son Terrell, who resides in [place] and patient?s daughter Veronica, who lives next door to patient. Living Arrangements: Patient lives with her in a one-story home. Patient?s home has a wheelchair ramp and 1 small step to climb leading in/out of the home which patient stated she can do without difficulty. Patient denied any environmental barriers. Transportation: Patient seldom drives and will only drive short distances. Patient?s is the main source of transportation. DME: Wheelchair ramp, power scooter, shower chair, HHS, rollator, standard cane and quad cane, and a knee walker. HHC: No history of SNF/Rehab: No history of Community Resources: [facility] Health History: Patient denied. Patient goals: Patient wishes to discharge home, denies need for home health care at this time. Patient denies any further needs or concerns at this time. Disposition Plan: admission to acute; RN CM/SW to follow for discharge planning needs that may arise. Barbra Palmer, LANDING SUPPORT SPECIALIST, HOME MISSION WORKER
--- NOTE | 2025-02-01 16:34 | ECHOCS_ITS ---
Reason For Study Reason For Study: TIA/CVA Procedure This was a 2D Doppler, Color Flow transthoracic echocardiogram. Contrast injection was performed. Exam performed portable in patient room. Left Ventricle Normal LV size. Left ventricular systolic function is normal. The left ventricular ejection fraction is 60 %. No regional wall motion abnormalities noted. Right Ventricle Normal RV size. Normal systolic function. Atria Normal left atrium. Normal right atrium. Mitral Valve Normal mitral valve. Tricuspid Valve Normal tricuspid valve. Aortic Valve Trisinus/trileaflet aortic valve. Pulmonic Valve Normal pulmonic valve. Great Vessels Normal aortic root. The pulmonary artery is normal size. Inferior vena cava collapse with respiration. Pericardium/Pleural No pericardial effusion. Medication Diluted definity 2ml given slow IV push to enhance endocardial definition. MMode/2D Measurements & Calculations LVIDd: 4.8 cm IVSd: 0.84 cm Ao root diam: 3.2 cm LVIDs: 3.2 cm LVPWd: 0.87 cm RVDd: 3.6 cm FS: 32.2 % LAV(MOD-bp): 49.2 ml LVAd ap4: 31.4 cm2 SV(MOD-sp4): 57.5 ml LAV(MOD-bp) Indexed: 25.0 ml/m2 LVLd ap4: 7.7 cm SI(MOD-sp4): 29.2 ml/m2 LAV(MOD-sp2): 41.9 ml EDV(MOD-sp4): 101.3 ml LAV(MOD-sp4): 46.2 ml EDV(sp4-el): 108.7 ml LVAs ap4: 18.6 cm2 LVLs ap4: 6.5 cm ESV(MOD-sp4): 43.8 ml ESV(sp4-el): 44.9 ml EF(MOD-sp4): 56.8 % EF(sp4-el): 58.7 % SV(sp4-el): 63.8 ml LA A4 area: 18.2 cm2 LA dimension(2D): 3.9 cm RA A4 area: 18.7 cm2 TAPSE: 1.9 cm Time Measurements MV dec time: 0.37 sec Doppler Measurements & Calculations MV E max hugo: 41.3 cm/sec Lat Peak E' Hugo: 5.1 cm/sec Med Peak E' Hugo: 5.9 cm/sec MV A max hugo: 80.6 cm/sec E/E' lat: 8.2 E/E' med: 7.0 MV E/A: 0.51 MV V2 max: 90.6 cm/sec MV P1/2t max hugo: 56.9 cm/sec Ao V2 max: 129.4 cm/sec MV max P.3 mmHg MV P1/2t: 124.7 msec Ao max P.7 mmHg MV V2 mean: 42.2 cm/sec MV dec slope: 133.7 cm/sec2 Ao V2 mean: 92.8 cm/sec MV mean P.86 mmHg MVA(P1/2t): 1.8 cm2 Ao mean P.9 mmHg MV V2 VTI: 19.5 cm Ao V2 VTI: 28.4 cm AV (velocity ratio): 0.81 LV V1 max: 98.3 cm/sec PA V2 max: 101.4 cm/sec LV V1 max P.9 mmHg PA V2 mean: 70.2 cm/sec LV V1 mean P.2 mmHg LV V1 mean: 70.4 cm/sec LV V1 VTI: 23.0 cm ECHO/Echo Complete W/ Contrast Interpretation Summary Normal LV size. Left ventricular systolic function is normal. The left ventricular ejection fraction is 60 %. Structurally normal valves. Contrast injection was performed. Ordering Physician: Estelita Atkins Referring Physician: Antonio Rhoades Performed By: Antonio Scherer RCS
[2025-02-01] MEDS: Hydroxychloroquine 200 MG Tablet 100 MG PO (21:02)
[2025-02-01] MEDS: Pantoprazole Sodium 20 MG Tablet PO (21:03)
[2025-02-01] MEDS: Acetaminophen 325 MG Tablet 650 MG PO (21:04)
[2025-02-02] VITALS (8 sets, daily range): BP systolic 117–142; BP diastolic 53–93; PULSE 71–81; RESP 14–18; TEMP 36.1–36.8; O2SAT 94–98; BMI 31.1
[2025-02-02 04:50] LABS: Absolute Lymphocyte Count 2.03 X10^3/uL (0.83-4.51); Absolute Neutrophil Count 2.7 X10^3/uL (2.0-7.7); Basophil# 0.04 X10^3/uL; Basophil% 0.7 % (0-1); Eosinophil# 0.28 X10^3/uL; Eosinophils% 4.9 % (0-5); Hematocrit 36.1 % (37-47); Hemoglobin 11.8 g/dL (12.0-15.0); Lymphocyte # 2.03 X10^3/ul (0.83-4.51); Lymphocyte % 35.7 % (19-41); Mean Corp Hgb Conc 32.7 g/dL (32-36); Mean Corpuscular Hgb 29.7 pg (27.0-32.0); Mean Corpuscular Volume 90.9 fL (81-99); Mean Platelet Vol. 10.9 fl (6.2-12.0); Monocyte# 0.64 X10^3/uL; Monocyte% 11.3 % (0-10); NRBC Flagged by Analyzer 0 % (0-5); Neutrophil # 2.67 X10^3/uL (2.7-7.7); Platelet Count 245 K/mm3 (150-450); RBC Distribution Width CV 13.1 % (11.6-14.6); RBC Distribution Width SD 43.6 fl (35.1-43.9); Red Blood Count 3.97 M/mm3 (4.2-5.4); White Blood Count 5.7 K/mm3 (4.4-11.0)
[2025-02-02 05:32] LABS: Anion Gap 10 (5-15); BUN 12 mg/dL (4-19); BUN/Creat Ratio 16.2 RATIO (10-20); Calcium,Total 8.8 mg/dL (7.6-11.0); Carbon Dioxide 24.2 mmol/L (21.0-32.0); Chloride 108 mmol/L (98-108); Creatinine, Serum 0.73 mg/dL (0.70-1.20); EST Glomerular Filtration Rate 90 (>60); Estimated Creatinine Clearance 75.08 ml/min (50-250); Glucose 89 mg/dL (70-99); Potassium 3.9 mmol/L (3.3-5.1); Sodium Level 142 mmol/L (133-145)
[2025-02-02 06:54] LABS: Cholesterol 177 mg/dL (<=200); High Density Lipoprotein 55 mg/dL; Low Density Lipoprotein Calc. 98 mg/dL; Triglycerides 124 mg/dL; Very Low Density Lipoprotein 25 mg/dL (5-40); cholesterol:hdl ratio screen 3.24
--- NOTE | 2025-02-02 08:32 | PCM.PN.HOSP ---
Subjective Subjective Patient is a 69-year-old female who was admitted with acute vertigo admitted to a monitored bed for subsequent manage Objective Data Objective Data Vital Signs: Vital Signs Temp Pulse Resp BP Pulse Ox O2 Del Method 98 F 71 16 132/53 H 94 Room Air 02/02/25 05:00 02/02/25 05:00 02/02/25 05:00 02/02/25 05:00 02/02/25 07:01 02/02/25 07:01 Oxygen Delivery Method Room Air Weight: 87.7 kg Body Mass Index (BMI) 31.1 Intake & Output: Intake and Output for Last 24 Hours 01/31/25 02/01/25 02/02/25 23:59 23:59 23:59 Intake Total 1010 / 1010 Balance 1010 / 1010 Lab / Micro Data 02/02/25 03:19 02/02/25 03:19 Labs: Laboratory Results - last 24 hr 02/01/25 13:05: WBC 7.2, RBC 4.41, Hgb 13.1, Hct 39.7, MCV 90.0, MCH 29.7, MCHC 33.0, RDW Std Deviation 42.6, RDW Coeff of [place] 12.9, Plt Count 272, MPV 10.7, Immature Gran % (Auto) 0.300, Neut % (Auto) 78.5 H, Lymph % (Auto) 12.3 L, [place] % (Auto) 6.6, Eos % (Auto) 1.7, Baso % (Auto) 0.6, Absolute Neuts (auto) 5.6, Absolute Lymphs (auto) 0.88, Nucleated RBC % 0, Sodium 140, Potassium 4.4, Chloride 106, Carbon Dioxide 22.9, Anion Gap 11, BUN 15, Creatinine 0.81, Estim Creat Clear Calc 74.23, Est GFR (MDRD) Non-Af 79, BUN/Creatinine Ratio 18.2, Glucose 97, Calcium 9.3, Troponin T High Sens 9 02/01/25 13:16: Urine Color Straw, Urine Clarity Clear, Urine pH 7.0, Ur Specific [place] 1.005, Urine Protein 15 H, Urine Glucose (UA) Normal, Urine Ketones Negative, Urine Occult Blood Negative, Urine Nitrite Negative, Urine Bilirubin Negative, Urine Urobilinogen Normal, Ur Leukocyte Esterase 500 H, Urine RBC 0-5 SEEN, Urine WBC 5-10 SEEN, Ur Squamous Epith Cells 0 SEEN, Urine Bacteria RARE, Urine Mucus 0 SEEN 02/02/25 03:19: WBC 5.7, RBC 3.97 L, Hgb 11.8 L, Hct 36.1 L, MCV 90.9, MCH 29.7, MCHC 32.7, RDW Std Deviation 43.6, RDW Coeff of [place] 13.1, Plt Count 245, MPV 10.9, Immature Gran % (Auto) 0.400, Neut % (Auto) 47.0, Lymph % (Auto) 35.7, [place] % (Auto) 11.3 H, Eos % (Auto) 4.9, Baso % (Auto) 0.7, Absolute Neuts (auto) 2.7, Absolute Lymphs (auto) 2.03, Nucleated RBC % 0, Sodium 142, Potassium 3.9, Chloride 108, Carbon Dioxide 24.2, Anion Gap 10, BUN 12, Creatinine 0.73, Estim Creat Clear Calc 75.08, Est GFR (MDRD) Non-Af 90, BUN/Creatinine Ratio 16.2, Glucose 89, Calcium 8.8, Triglycerides 124, Cholesterol 177, LDL Cholesterol, Calc 98, VLDL Cholesterol 25, HDL Cholesterol 55, Cholesterol/HDL Ratio 3.24 Radiography Diagnostic Testing: Radiology Impression Brain CT 02/01/25 12:48 IMPRESSION: 1. No acute intracranial finding. 2. Findings compatible with acute left maxillary sinusitis. Reading Location: [facility] Head/Neck CTA 02/01/25 12:48 IMPRESSION: 1. No hemodynamically significant large vessel occlusion, aneurysm or AVM. 2. 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 Reading Location: [facility] Chest X-Ray 02/01/25 13:45 IMPRESSION: No acute process. Reading [facility] Physical Exam Narrative GENERAL: cooperative HEENT: Atraumatic; normocephalic EYES; Anicteric, Normal Conjunctiva NECK; supple, normal thyroid, RESPIRATORY: Diminished to auscultation CARDIOVASCULAR: Regular S1 S2, GI: soft, normoactive bowel sounds, : No Renal angle tenderness; EXTREMITIES: No edema, no clubbing, MUSCULOSKELETAL: no muscle wasting NEURO: Awake; no lateralizing signs. SKIN: No Rash PSYCH; Flat affect Assessment & Plan Assessment/Plan (1) Dizziness: PLAN: Plan 69-year-old female who presented with acute vertigo 1. Acute vertigo Patient has been admitted to a monitored bed initial imaging studies with head CT unremarkable. The patient was placed on Q4 neurochecks MRI of the brain ordered to rule out posterior circulation CVA. Patient was started on aspirin high intensity statin [facility] 2. GERD ? On PPI 3. Rheumatoid arthritis ? Patient is on hydroxychloroquine as well as prednisone and pyridoxine did continue 4. Anemia ? Secondary to chronic disorder monitoring H&H and transfuse if patient becomes symptomatic or hemoglobin falls below 7 5. DVT prophylaxis ? On enoxaparin Time spent in the patient's overall evaluation,decision-making process, review of diagnostic data, adjustment of management, discussion with other providers, nursing nursing and ancillary staff involved in patient's care documentation, 36 Minutes Advance planning; did discuss with the patient and regarding advanced directives as well as CODE STATUS. Did explain the various scenarios involved ( FULL CODE, DNR CCA, DNR CCA with no intubation, and DNR CC and what each meant) patient elected to remain full code with CPR and intubation if he. Order was placed. Time spent on discussion 16 minutes. Charges/Coding Multi Select Codes Hospitalists' Procedures Procedures: 68442 Advncd Care Plan 30 Min
--- NOTE | 2025-02-02 09:42 | STROKE.CONS ---
Assessment and Plan: Stroke Assessment/Plan KAREN CAMERON is a 69 F with a history of claudication pain in right upper extremity presents via the ED on 02/01/2025 with a complaint of dizziness since yesterday. It is better today. Not a TNK or MT candidate Neurological examination shows non focal examination. Neuroimaging shows CT of the brain showed no acute intracranial pathology. 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 Plan to r/o stroke. Plan Stroke w/up: MRI Brain, ECHO Continue Aspirin PT,OT evaluation Thanks for consult. Spent 70 minutes in evaluation and management of this patient. HPI Consult Data Date of Consult: 02/02/25 HPI Narrative HPI Narrative: KAREN CAMERON, is a 69 F with a history of claudication pain in right upper extremity presents via the ED on 02/01/2025 with a complaint of dizziness which started on the morning of admission at ~ 5am. It was present upon waking up and persistent. She described it as the room spinning around. It is precipitated while walking, rolling over in bed. She denies tinnitus and hearing loss. It is getting better today. She did not have any such history of dizziness. She denied any history of stroke. She denied any headache, palpitations, dizziness, nausea, vomiting, blurred vision, slurred speech, numbness, tingling or any other symptoms. Review of systems is otherwise negative. CT of the brain showed no acute intracranial pathology. 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 with distal reconstitution which appears chronic in nature [facility] Medical History Hammer toes of both feet Claudication of right upper extremity due to atherosclerosis Home Medications ?Medication ?Instructions ?Recorded ?Last Taken ?Type ferrous sulfate 325 mg (65 mg 325 mg PO DAILY 01/03/24 02/01/25 History iron) tablet hydroxychloroquine 100 mg tablet 100 mg PO BID 01/03/24 02/01/25 History naproxen 500 mg tablet (Naprosyn) 500 mg PO BID 01/03/24 02/01/25 History MODUCARE 1 tab PO TID SUPPLEMENT 02/01/25 02/01/25 History ascorbate calcium (vitamin C) 500 1 g PO DAILY 02/01/25 02/01/25 History mg tablet omeprazole 20 mg capsule,delayed 20 mg PO BID 02/01/25 02/01/25 History release prednisone 5 mg tablet 5 mg PO DAILY 02/01/25 02/01/25 History vitamin E 268 mg (400 unit) capsule 268 mg PO DAILY 02/01/25 Unknown History Allergy/AdvReac Type Severity Reaction Status Date / Time No Known Allergies Allergy Verified 02/01/25 12:11 Social History Smoking Status: Never smoker Vital Signs Vital Signs Vital Signs: 02/01/25 12:11 02/01/25 13:04 02/01/25 14:00 Temperature 98.1 F Temperature Source Temporal Pulse Rate 81 70 Pulse Rate [Lying] 70 Pulse Rate [Sitting (for 1 minute prior to obtaining)] 81 Pulse Rate [Standing (for 1 minute prior to obtaining)] 82 Respiratory Rate 14 17 Respiratory Effort Respiratory Depth Respiratory Pattern Blood Pressure 116/81 H 132/69 H Blood Pressure [Lying] 136/72 H Blood Pressure [Sitting (for 1 minute prior to obtaining)] 164/79 H Blood Pressure [Standing (for 1 minute prior to obtaining)] 145/81 H Blood Pressure Mean 92 90 Blood Pressure Mean [Lying] 93 Blood Pressure Mean [Sitting (for 1 minute prior to obtaining)] 107 Blood Pressure Mean [Standing (for 1 minute prior to obtaining)] 102 Blood Pressure Source Blood Pressure Position Blood Pressure Location Pulse Ox 98 98 Oxygen Delivery Method Room Air 02/01/25 15:35 02/01/25 16:00 02/01/25 17:00 Temperature 98.1 F 97.7 F L Temperature Source Oral Pulse Rate 69 65 68 Pulse Rate [Lying] Pulse Rate [Sitting (for 1 minute prior to obtaining)] Pulse Rate [Standing (for 1 minute prior to obtaining)] Respiratory Rate 20 H 14 16 Respiratory Effort Respiratory Depth Respiratory Pattern Blood Pressure 129/81 H 131/67 H Blood Pressure [Lying] Blood Pressure [Sitting (for 1 minute prior to obtaining)] Blood Pressure [Standing (for 1 minute prior to obtaining)] Blood Pressure Mean 97 88 Blood Pressure Mean [Lying] Blood Pressure Mean [Sitting (for 1 minute prior to obtaining)] Blood Pressure Mean [Standing (for 1 minute prior to obtaining)] Blood Pressure Source Monitor Blood Pressure Position Sitting Blood Pressure Location Right Arm Pulse Ox 96 98 97 Oxygen Delivery Method Room Air 02/01/25 17:00 02/01/25 17:41 02/01/25 19:30 Temperature 97.7 F L Temperature Source Oral Pulse Rate 68 Pulse Rate [Lying] Pulse Rate [Sitting (for 1 minute prior to obtaining)] Pulse Rate [Standing (for 1 minute prior to obtaining)] Respiratory Rate 16 Respiratory Effort Normal Respiratory Depth Normal Respiratory Pattern Normal Blood Pressure 131/67 H Blood Pressure [Lying] Blood Pressure [Sitting (for 1 minute prior to obtaining)] Blood Pressure [Standing (for 1 minute prior to obtaining)] Blood Pressure Mean 88 Blood Pressure Mean [Lying] Blood Pressure Mean [Sitting (for 1 minute prior to obtaining)] Blood Pressure Mean [Standing (for 1 minute prior to obtaining)] Blood Pressure Source Monitor Blood Pressure Position Sitting Blood Pressure Location Right Arm Pulse Ox 97 98 Oxygen Delivery Method Room Air Room Air Room Air 02/01/25 21:00 02/01/25 22:00 02/02/25 01:00 Temperature 98 F 97.6 F L Temperature Source Oral Oral Pulse Rate 83 76 Pulse Rate [Lying] Pulse Rate [Sitting (for 1 minute prior to obtaining)] Pulse Rate [Standing (for 1 minute prior to obtaining)] Respiratory Rate 16 16 Respiratory Effort Normal Non-Labored Respiratory Depth Normal Respiratory Pattern Normal Blood Pressure 132/90 H 132/76 H Blood Pressure [Lying] Blood Pressure [Sitting (for 1 minute prior to obtaining)] Blood Pressure [Standing (for 1 minute prior to obtaining)] Blood Pressure Mean 104 94 Blood Pressure Mean [Lying] Blood Pressure Mean [Sitting (for 1 minute prior to obtaining)] Blood Pressure Mean [Standing (for 1 minute prior to obtaining)] Blood Pressure Source Monitor Monitor Blood Pressure Position Sitting Semi-Fowlers Blood Pressure Location Right Arm Right Arm Pulse Ox 97 97 Oxygen Delivery Method Room Air Room Air 02/02/25 05:00 02/02/25 07:01 02/02/25 09:00 Temperature 98 F 98.2 F Temperature Source Oral Oral Pulse Rate 71 81 Pulse Rate [Lying] Pulse Rate [Sitting (for 1 minute prior to obtaining)] Pulse Rate [Standing (for 1 minute prior to obtaining)] Respiratory Rate 16 16 Respiratory Effort Respiratory Depth Respiratory Pattern Blood Pressure 132/53 H 130/58 H Blood Pressure [Lying] Blood Pressure [Sitting (for 1 minute prior to obtaining)] Blood Pressure [Standing (for 1 minute prior to obtaining)] Blood Pressure Mean 79 82 Blood Pressure Mean [Lying] Blood Pressure Mean [Sitting (for 1 minute prior to obtaining)] Blood Pressure Mean [Standing (for 1 minute prior to obtaining)] Blood Pressure Source Monitor Monitor Blood Pressure Position Supine Semi-Fowlers Blood Pressure Location Right Arm Pulse Ox 96 94 98 Oxygen Delivery Method Room Air Room Air Room Air Weight Weight: 87.7 kg Body Mass Index (BMI) 31.1 NIHSS NIHSS Nursing Documentation NIHSS Nursing Documentation: NIHSS: Ischemic Stroke/TIA Start: 02/01/25 16:34 Text: For PCU Patients: NIH and Neuro Check every 4 Status: Active hours, PRN and with change in RN caregiver. Freq: [id number] Protocol: Activity Type Activity Date Activity User E-sign Co-sign Detail Recorded Client Recorded Date Recorded By Document 02/02/25 05:00 [id number] 02/02/25 06:05 02/02/25 05:00 NIH Stroke Scale [NIHSS] A score of 0 is normal or asymptomatic . Total possible score is 42. Inpatient: RN or Physician to activate a stroke alert for onset of new stroke symptoms or with NIHSS increase >/= 3 points. Following change in neurological status, NIHSS will be performed per physician order or more frequently PRN. -1a. Level of Consciousness Alert; keenly responsive -1b. LOC Questions Answers BOTH questions correctly. -1c. LOC Commands Performs both tasks correctly . -2. Best Gaze Normal -3. Visual No visual loss -4. Facial Palsy Normal symmetrical movements -5a. Left Arm No drift; arm holds 90 (or 45 ) degrees for full 10 seconds -5b. Right Arm No drift; arm holds 90 (or 45 ) degrees for full 10 seconds -6a. Left Leg No drift; leg holds 30-degree position for full 5 seconds -6b. Right Leg No drift; leg holds 30-degree position for full 5 seconds -7. Limb Ataxia Absent -8. Sensory Normal; no sensory loss -9. Best Language No aphasia; normal -10. Dysarthria Normal -11. Extinction and Inattention No abnormality -Total 0 Query Text:A score of 0 is normal or asymptomatic. Total possible score is 42 . ED: Notify Physician for NIHSS increase by > / = 3 points. Inpatient: RN or Physician to activate a stroke alert for NIHSS increase of > / = 3 points. Coma Scale [Assess] -Eye Opening Spontaneous -Motor Obeys Commands -Verbal Oriented [Total] -Coma Scale Total 15 NIHSS 1a. Level of Consciousness: Alert; keenly responsive 1b. LOC Questions: Answers BOTH questions correctly. 1c. LOC Commands: Performs both tasks correctly. 2. Best Gaze: Normal 3. Visual: No visual loss 4. Facial Palsy: Normal symmetrical movements 5a. Left Arm: No drift; arm holds 90 (or 45) degrees for full 10 seconds 5b. Right Arm: No drift; arm holds 90 (or 45) degrees for full 10 seconds 6a. Left Leg: No drift; leg holds 30-degree position for full 5 seconds 6b. Right Leg: No drift; leg holds 30-degree position for full 5 seconds 7. Limb Ataxia: Absent 8. Sensory: Normal; no sensory loss 9. Best Language: No aphasia; normal 10. Dysarthria: Normal 11. Extinction and Inattention: No abnormality Total: 0 Physical Exam Const alert, oriented x3 and no apparent distress General Appearance: cooperative, comfortable and well kempt Exam Limitations: no limitations HEENT normocephalic Neuro Neuro Narrative: Awake, alert, oriented X3 Speech fluent, no aphasia Cranial nerves 2-12 intact Power 5/5 in al extremities Sensation: Intact No ataxia Lab / Micro Data 02/02/25 03:19 02/02/25 03:19 Labs: Laboratory Results - last 24 hr 02/01/25 13:05: WBC 7.2, RBC 4.41, Hgb 13.1, Hct 39.7, MCV 90.0, MCH 29.7, MCHC 33.0, RDW Std Deviation 42.6, RDW Coeff of Emmanuel 12.9, Plt Count 272, MPV 10.7, Immature Gran % (Auto) 0.300, Neut % (Auto) 78.5 H, Lymph % (Auto) 12.3 L, [place] % (Auto) 6.6, Eos % (Auto) 1.7, Baso % (Auto) 0.6, Absolute Neuts (auto) 5.6, Absolute Lymphs (auto) 0.88, Nucleated RBC % 0, Sodium 140, Potassium 4.4, Chloride 106, Carbon Dioxide 22.9, Anion Gap 11, BUN 15, Creatinine 0.81, Estim Creat Clear Calc 74.23, Est GFR (MDRD) Non-Af 79, BUN/Creatinine Ratio 18.2, Glucose 97, Calcium 9.3, Troponin T High Sens 9 02/01/25 13:16: Urine Color Straw, Urine Clarity Clear, Urine pH 7.0, Ur Specific [place] 1.005, Urine Protein 15 H, Urine Glucose (UA) Normal, Urine Ketones Negative, Urine Occult Blood Negative, Urine Nitrite Negative, Urine Bilirubin Negative, Urine Urobilinogen Normal, Ur Leukocyte Esterase 500 H, Urine RBC 0-5 SEEN, Urine WBC 5-10 SEEN, Ur Squamous Epith Cells 0 SEEN, Urine Bacteria RARE, Urine Mucus 0 SEEN 02/02/25 03:19: WBC 5.7, RBC 3.97 L, Hgb 11.8 L, Hct 36.1 L, MCV 90.9, MCH 29.7, MCHC 32.7, RDW Std Deviation 43.6, RDW Coeff of Emmanuel 13.1, Plt Count 245, MPV 10.9, Immature Gran % (Auto) 0.400, Neut % (Auto) 47.0, Lymph % (Auto) 35.7, [place] % (Auto) 11.3 H, Eos % (Auto) 4.9, Baso % (Auto) 0.7, Absolute Neuts (auto) 2.7, Absolute Lymphs (auto) 2.03, Nucleated RBC % 0, Sodium 142, Potassium 3.9, Chloride 108, Carbon Dioxide 24.2, Anion Gap 10, BUN 12, Creatinine 0.73, Estim Creat Clear Calc 75.08, Est GFR (MDRD) Non-Af 90, BUN/Creatinine Ratio 16.2, Glucose 89, Calcium 8.8, Triglycerides 124, Cholesterol 177, LDL Cholesterol, Calc 98, VLDL Cholesterol 25, HDL Cholesterol 55, Cholesterol/HDL Ratio 3.24 Imaging Radiology Impression Brain CT 02/01/25 12:48 IMPRESSION: 1. No acute intracranial finding. 2. Findings compatible with acute left maxillary sinusitis. Reading Location: [id number] Head/Neck CTA 02/01/25 12:48 IMPRESSION: 1. No hemodynamically significant large vessel occlusion, aneurysm or AVM. 2. 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 Reading Location: [facility] Chest X-Ray 02/01/25 13:45 IMPRESSION: No acute process. Reading [facility] Active Medications Active Medications Active Medications: Current Medications Generic Name Dose Route Start Last Admin Trade Name Freq PRN Reason Stop Dose Admin Acetaminophen 650 mg 02/01/25 16:34 02/01/25 21:04 Acetaminophen 325 Mg Tablet PO 650 mg Q6H PRN PRN Administration Pain 1-10 Or Fever >100.7 Ascorbic Acid 1,000 mg 02/02/25 12:00 Ascorbic Acid 500 Mg Tablet PO DAILY@1200 [facility] Aspirin 81 mg 02/02/25 08:00 Aspirin 81 Mg Tab.Chew PO BREAKFAST [facility] Atorvastatin Calcium 40 mg 02/01/25 22:00 02/01/25 20:49 Atorvastatin Calcium 40 Mg Tablet PO Not Given QHS [facility] Ferrous Sulfate 325 mg 02/02/25 12:00 Ferrous Sulfate 325 Mg Tablet PO DAILY@1200 [facility] Hydralazine HCl 5 mg 02/01/25 16:34 Hydralazine 20 Mg/Ml Vial IV 02/02/25 16:34 Q30M PRN maintain BP parameters with HR <60 Hydroxychloroquine Sulfate 100 mg 02/02/25 08:00 02/01/25 21:02 Hydroxychloroquine 200 Mg Tablet PO 100 mg BIDCM [facility] Administration Labetalol HCl 10 - 20 mg 02/01/25 16:34 Labetalol 20mg/4ml Syringe IV 02/02/25 16:34 Q10M PRN PRN maintain BP parameters with HR >/=60 Lorazepam 1 mg 02/01/25 16:34 Lorazepam 1 Mg Tablet PO X1 PRN ANXIETY Nitroglycerin 0.4 mg 02/01/25 16:34 Nitroglycerin (Inpatient Use) 0.4 Mg Tab.Subl SL Q5M PRN CARDIAC/CHEST PAIN Ondansetron HCl 4 mg 02/01/25 16:34 Ondansetron 4 Mg/2 Ml Vial IV Q8H PRN PRN NAUSEA/VOMITING Oxycodone HCl 2.5 - 5 mg 02/01/25 16:34 Oxycodone 5 Mg Tablet PO Q4H PRN PRN Pain Score 4-10 Pantoprazole Sodium 20 mg 02/01/25 22:00 02/01/25 21:03 Pantoprazole Sodium 20 Mg Tablet PO 20 mg BID BRYAN Administration Prednisone 5 mg 02/02/25 08:00 Prednisone 5 Mg Tablet PO DAILYCM [facility] Vitamin E 400 units 02/02/25 08:00 Vitamin E 400 Units Capsule PO DAILYCM BRYAN
[2025-02-02] MEDS: Hydroxychloroquine 200 MG Tablet 100 MG PO ×2 (09:47→17:29)
[2025-02-02] MEDS: Pantoprazole Sodium 20 MG Tablet PO ×2 (09:47→22:32)
[2025-02-02] MEDS: Vitamin E 400 UNITS Capsule PO (09:47)
[2025-02-02] MEDS: Aspirin 81 MG TAB.CHEW PO (09:48)
[2025-02-02] MEDS: predniSONE 5 MG Tablet PO (09:48)
[2025-02-02] MEDS: Acetaminophen 325 MG Tablet 650 MG PO ×2 (09:53→22:31)
[2025-02-02] MEDS: Ascorbic Acid 500 MG Tablet 1000 MG PO (12:06)
[2025-02-02] MEDS: Ferrous Sulfate 325 MG Tablet PO (12:06)
[2025-02-03 02:00] VITALS: BP 126/61; PULSE 61; RESP 14; TEMP 36.6; O2SAT 99
[2025-02-03 03:45] VITALS: BMI 31.1
[2025-02-03 05:41] VITALS: BP 151/74; PULSE 79; RESP 16; TEMP 36.1; O2SAT 100
[2025-02-03 07:50] VITALS: O2SAT 95
[2025-02-03] MEDS: Acetaminophen 325 MG Tablet 650 MG PO (08:48)
[2025-02-03] MEDS: Vitamin E 400 UNITS Capsule PO (08:49)
[2025-02-03] MEDS: Aspirin 81 MG TAB.CHEW PO (08:49)
[2025-02-03] MEDS: predniSONE 5 MG Tablet PO (08:49)
[2025-02-03] MEDS: Pantoprazole Sodium 20 MG Tablet PO (08:49)
[2025-02-03] MEDS: Hydroxychloroquine 200 MG Tablet 100 MG PO (08:50)
--- NOTE | 2025-02-03 09:00 | MRI_ITS ---
PROCEDURE: BRAIN WITHOUT CONTRAST 02/03/2025 REASON FOR EXAM: VERTIGO TECHNIQUE: Multisequence multiplanar MR images of the brain were obtained without the administration of intravenous contrast. COMPARISON: 02/01/2025 FINDINGS: No diffusion restriction to suggest acute/subacute ischemia. No evidence of acute intracranial hemorrhage, midline shift or mass effect. Mild generalized cerebral atrophy and chronic small-vessel ischemic changes. No hydrocephalus. Globes are intact. Moderate left maxillary mucosal thickening. Mastoid air cells are clear. No chronic microhemorrhage. MRI/Brain without Contrast IMPRESSION: 1. No acute intracranial abnormality. 2. Mild atrophy and chronic small-vessel ischemic disease. Reading Location: [facility]
--- NOTE | 2025-02-03 09:02 | PCM.PN.HOSP ---
Reason for Visit Reason for Visit: Diagnoses Dizziness and giddiness (02/01/25) Subjective Subjective Dizziness much better. Objective Data Objective Data Vital Signs: Vital Signs Temp Pulse Resp BP Pulse Ox O2 Del Method 36.1 C L 79 16 151/74 H 100 Room Air 02/03/25 05:41 02/03/25 05:41 02/03/25 05:41 02/03/25 05:41 02/03/25 05:41 02/03/25 05:41 Oxygen Delivery Method Room Air Weight: 87.7 kg Body Mass Index (BMI) 31.1 Intake & Output: Intake and Output for Last 24 Hours 02/01/25 02/02/25 02/03/25 23:59 23:59 23:59 Intake Total 1010 / 1010 665 / 665 Balance 1010 / 1010 665 / 665 Lab / Micro Data 02/02/25 03:19 02/02/25 03:19 Physical Exam Const alert and no apparent distress Eyes Eyes Narrative: bilateral nystagmus that fatigues, but more prominent on left. Assessment & Plan Assessment/Plan (1) Vertigo: PLAN: 2/2 BPPV MRI brain negative for CVA. add PRN meclizine. outpt vestibular rehab. concern it may have been precipitated by recent dental work last week.
[2025-02-03] MEDS: LORazepam 1 MG Tablet PO (09:19)
[2025-02-03 10:35] VITALS: BP 136/73; PULSE 74; RESP 18; TEMP 36.4; O2SAT 98
--- NOTE | 2025-02-03 11:21 | PCM.DC.SUM ---
Providers Date of Admission: 02/01/25 Primary Care Physician: HANG FERGUSON DO Consultations 02/01/25 16:34 Consult: Tele-Neurology Routine Consulting Provider: [facility] Reason for Consult: Acute Ischemic Stroke/TIA EMERGENT Consult: No MD Notified: Yes Date Notified: 02/01/25 Time Notified: 17:08 Method of Notification: Answering Service Nursing Unit Staff Notify [facility] of Tele-Neurology Consult: Yes Reason For Visit: VERTIGO Diagnosis Discharge Diagnosis (1) Vertigo: Status: Acute Code(s): R42 - Dizziness and giddiness Plan: 12/01 BPPV MRI brain negative for CVA. add PRN meclizine. outpt vestibular rehab. concern it may have been precipitated by recent dental work last week. Medications at Discharge Home Medications ferrous sulfate 325 mg (65 mg iron) tablet 325 mg PO DAILY 01/03/24 hydroxychloroquine 100 mg tablet 100 mg PO BID 01/03/24 naproxen 500 mg tablet (Naprosyn) 500 mg PO BID 01/03/24 MODUCARE 1 tab PO TID SUPPLEMENT 02/01/25 ascorbate calcium (vitamin C) 500 mg tablet 1 g PO DAILY 02/01/25 omeprazole 20 mg capsule,delayed release 20 mg PO BID 02/01/25 prednisone 5 mg tablet 5 mg PO DAILY 02/01/25 vitamin E 268 mg (400 unit) capsule 268 mg PO DAILY 02/01/25 meclizine 12.5 mg tablet 12.5 mg PO TID PRN PRN Vertigo #20 tabs 02/03/25 Hospital Course Operations None Procedures 2-D Echocardiogram Summary of Care Provided Hospital Course: Patient presents with acute onset of vertigo that began on the morning of the . Any movement made her feel worse. Presented to the emergency room for evaluation. Patient symptoms gradually improved. Patient underwent an MRI today that showed no stroke. Symptoms are most likely attributable to benign paroxysmal positional vertigo. Patient be discharged with as needed prescription for meclizine. Patient may also follow-up with occupational therapy for vestibular rehab. Therapy was concerned that the dental work that she had on the may have potentially precipitated this event. No additional workup necessary patient will be discharged home. Weight / BMI Weight Weight: 87.7 kg Body Mass Index (BMI) 31.1 ABG / Lab / Microbiology Data 02/02/25 03:19 02/02/25 03:19 Radiography Diagnostic Testing: Radiology Impression Brain MRI 02/03/25 09:00 IMPRESSION: 1. No acute intracranial abnormality. 2. Mild atrophy and chronic small-vessel ischemic disease. Reading Location: [facility] Instructions Discharge Diet: No restrictions DC O2, CPAP, BIPAP Needs Home O2 Discharge instructions: No Meaningful Use Info Meaningful Use Meaningful Use Diagnoses (Choose all that apply): None applicable Ischemic Stroke Statin Dosing Therapy Reference: STATIN DOSE THERAPY REFERENCE: * Patients > 75 years receive moderate or high dose statin therapy. * Patients 75 years or YOUNGER should receive HIGH intensity statin dose unless contraindicated. You will be required to document reason for non-treatment if statin daily dose does not meet guidelines. HIGH DOSE STATIN THERAPY DAILY Atorvastatin > than or = to 40 mg Rosuvastatin > than or = to 20 mg Amlodipine + Atorvastatin > than or = to 2.5/40 mg Ezetimibe + Simvastatin 10/80 mg Simvastatin 80mg Discharge Plan Admission Admit Date/Time: 02/01/25 15:36 Primary Reason for Your Visit: Vertigo Attending Provider: Robert Urrutia Primary Care Provider: HANG FERGUSON Consulting Providers: Omar Nunes; Karolina Mcdowell; Yudelka Wells; Isela Yeung; Eula Wolf; Stefan Archuleta; Kanchan Galeas; Hayden Marr; Francis Pearson; Tl Arias; Thalia Roberts; Omar Lozano; Marie Guzman; Isis Calixto; Rocio Leslie; Bakari Long; Fidencio Shetty; Rinku Lozano; Jovana Camp; Lanre Quiros; Estelita Atkins; Skyler Mcmahon Instructions Additional Instructions / Restrictions: Your dizziness is due to inner ear vertigo. Symptoms should continue to improve. You may take meclizine (Antivert) as needed for dizziness. May also follow-up with therapy for vestibular rehab where they can reposition your head to try to remove the crystals. Discharge Orders/Prescriptions Prescriptions: New meclizine 12.5 mg Tablet 12.5 mg PO TID PRN PRN (Reason: Vertigo) Qty: 20 0RF Continued ferrous sulfate 325 mg (65 mg iron) tablet 325 mg PO DAILY hydroxychloroquine 100 mg tablet 100 mg PO BID naproxen [Naprosyn] 500 mg tablet 500 mg PO BID Rx Instructions: for pain ascorbate calcium (vitamin C) 500 mg tablet 1 g PO DAILY vitamin E 268 mg (400 unit) capsule 268 mg PO DAILY MODUCARE capsule 1 tab PO TID Patient Comments: JOINT SUPPLEMENT. PT AWARE THEY WOULD HAVE TO BRING IN. PHARMACY DOESNT CARRY. prednisone 5 mg tablet 5 mg PO DAILY omeprazole 20 mg capsule,delayed release(DR/EC) 20 mg PO BID Referrals / Follow Up: HANG FERGUSON DO [Primary Care Provider] - Within 2 Weeks Disposition Disposition (needs filled in before D/C Order can be placed): Home, Self Care Charges/Coding Visit Charges Inpatient E&M: 82898 Disch Hosp
[2025-02-03 11:28] VITALS: BMI 31.1
--- NOTE | 2025-02-03 11:33 | CASEMGMT ---
Met with patient to complete SANTANA form. SANTANA form explained to patient who voiced understanding and signed form. Original form placed in pt?s chart and copy provided to patient. Nely Lucia, Discharge Planning Asst
--- NOTE | 2025-02-03 11:46 | CASEMGMT ---
Patient has order for dischage, scrip received for vestibular therapy. ZACHARIAH FRAUSTO in to discuss needs at discharge. Patient states she [facility] to have [facility] at [facility]. Patient denies further needs or concerns at discharge. Patient had no further questions. ZACHARIAH FRAUSTO faxed referral to [facility] with request to call patient to schedule. ZACHARIAH FRAUSTO placed copy of script in chart. Original script placed in discharge packet with vestibular therapy information. ZACHARIAH FRAUSTO updated discharge plan.
--- NOTE | 2025-02-03 13:37 | PHA.DC.MR.R ---
Pharmacy MA Med Reconciliation Pharmacy Service has performed discharge medication reconciliation for this patient. Medication education papers prepared, patient discharged when counseling was attempted. Medications reviewed. The patient's discharge medication list was reviewed for discrepancies and discrepancies were resolved. Medications at Discharge Home Medications ferrous sulfate 325 mg (65 mg iron) tablet 325 mg PO DAILY supplement 01/03/24 hydroxychloroquine 100 mg tablet 100 mg PO BID 01/03/24 naproxen 500 mg tablet (Naprosyn) 500 mg PO BID 01/03/24 MODUCARE 1 tab PO TID SUPPLEMENT 02/01/25 ascorbate calcium (vitamin C) 500 mg tablet 1 g PO DAILY vitamin 02/01/25 omeprazole 20 mg capsule,delayed release 20 mg PO BID reflux 02/01/25 prednisone 5 mg tablet 5 mg PO DAILY inflammation 02/01/25 vitamin E 268 mg (400 unit) capsule 268 mg PO DAILY vitamin 02/01/25 meclizine 12.5 mg tablet 12.5 mg PO TID PRN PRN Vertigo #20 tabs 02/03/25
== END 2025-02-03 12:25 | disposition home or self-care (01) ==
LOC: ED 15:32 → PCU 15:45
PROVIDERS: Physician Assistant; Admitting Provider Student in an Organized Health Care Education/Training Program; Emergency Provider Surgery; PCP Family Medicine; Referring Provider Surgery
DX: H81.10 Benign paroxysmal vertigo, unspecified ear (principal); M06.9 Rheumatoid arthritis, unspecified; K21.9 Gastro-esophageal reflux disease without esophagitis; Z79.899 Other long term (current) drug therapy
CPT/HCPCS: 36415; 70450; 70496; 70498; 70551; 71046; 80048; 80061; 81001; 84484; 85025; 93005; 93306; 94762; 96374; 96375; 97161; 97165; 97802; 99221; 99285; Q9957; Q9967; A4216; C8929; G0378; J2405

== ENCOUNTER 2025-02-13 17:30 | Outpatient (RCR) | payer MEDICARE, BC, SELFPAY ==
--- NOTE | 2025-02-06 16:27 | HP.PTEVAL ---
Patient's Visit Information Visit Information Visit Information: KAREN CAMERON is a 69 year old F referred to Physical Therapy by Dr. Robert Urrutia DO with a diagnosis of dizzyness. Date of Evaluation: 02/06/25 Physical Therapist: Robert Walton, DPT, OCS, CSCS Visit Plan Frequency: 1-2x /Week Duration: 2-4 Weeks Plan: 1-2x/week for 2-4 weeks for positional checks and other vestibular as needed. treated with Bambi serrano today and instruct with HALLIE. Subjective Subjective: Woke up with dizzyness last monday with spinning dizzyness. Took some RA pills and did not geet better. WEnt to ER and admitted for MRI so was in there two nights. Catscans and MRI were fine, heart checks were fine. [place] crummy that whole time and head feels weird. Had dental work done a couple days prior. Sent home Monday. Still feels crummy, rooms spins if lies down or rolls in bed for 45 seconds. Sleep is fine. Getting up gets some spinning temporarily. Needing walker now to avoid falling which has not happened. Not employed so takes care of grandchildren and avoided that this week. Objective Objective: Walks holding into PT and feeling somewhat unsteady. Trasnfers with UE I, steps with two rails reciprocally and I. cervical AROM is WFL. UE AROM WFL. L HD - R HD + up torsional immediate nystagmus for 12 seconds. Treated with maggie maneuver adndthen gone. Balance/Special Test Scores Functional Gait Assessment Score: 24 % Disability: 20.0000 Dizziness Score: 50 Goals Goal 1:: FGA to reduce fallr isk Goal Time Frame: 2-4 Weeks Goal 2:: Dizzyness and unsteady feeling 100% better Goal Time Frame: 2-4 Weeks Goal 3:: DHI score 10 or less Goal Time Frame: 2-4 Weeks Rehabilitation Potential Physical Therapy Diagnosis: dizzyness and unstadyness limiting safe adn comfortable function. Rehabilitation Potential: Fair Anticipated Interventions Patient/Client Instruction: Educate patient on: Condition and Plan of Care For the Purpose of:: To increase tolerance to activity/condition/position and To improve safety Therapeutic Exercise to Include: Balance training Comment: positional treatments For the Purpose of:: To increase tolerance to activity/condition/position and To improve safety Text: Thank you for the opportunity to evaluate your patient. For Medicare and Medicare HMO plans, please review the plan of care and approve it. It will need to be FAXED BACK to us at [phone] for Medicare purposes. For Medicare only, by signing this I certify the plan of care. Please let me know if there are questions or concerns regarding this plan of care. Physician Signature: Date:
--- NOTE | 2025-02-13 17:39 | HP.PTDCSUM ---
Discharge Summary D/C summary: It has been my pleasure to treat KAREN CAMERON referred by Dr. Robert Urrutia DO, with the diagnosis of dizzyness for a total of 2 visit(s). Discharge Date: 02/13/25 Please see the following information for a summary of their discharge status. Subjective Subjective: No dizzyness since Monday night. Tried a few manuevers herself at the weekend. Activities are normal this week. Sleeping fine. Overall Improvement % Improvement: 100 Objective Objective/Function: FGA is much better - positional B today VOR with out symptoms walking well today adn feeling back to normal. Goals Goal 1:: FGA to reduce fallr isk Goal Progress: Goal Met Goal 2:: Dizzyness and unsteady feeling 100% better Goal Progress: Goal Met Goal 3:: DHI score 10 or less Goal Progress: Goal Met Plan Plan: d/c D/C Information Discharge Comments: resolved BPPV d/c sentence: If there are questions or concerns regarding this patient's physical therapy, please feel free to call me at [phone]. Thank you for the referral of this patient. Sincerely, Robert Walton, DPT, OCS, CSCS Balance/Gait/Functional tests Balance/Special Test Scores Functional Gait Assessment Score: 28 % Disability: 6.6700 Dizziness Score: 0 Improvement % Improvement: 100
== END 2025-02-13 19:00 | disposition home or self-care (01) ==
LOC: PT 17:30
PROVIDERS: PCP Family Medicine
DX: R42 Dizziness and giddiness (principal)
CPT/HCPCS: 97161; 97530

== ENCOUNTER → 2025-09-19 | Outpatient (CLI) | payer MEDICARE, BC, SELFPAY ==
--- NOTE | 2025-09-19 16:16 | MRI_ITS ---
PROCEDURE: MRI ABD WITH AND W/O CONTRAST 09/19/2025 REASON FOR EXAM: ELEVATED ALKALINE PHOSPHATE LEVEL, DILATION OF BILIARY TRACT TECHNIQUE: Procedure Code: [id number] Modality: MR Procedure: MRI ABD WITH AND W/O CONTRAST Multiplanar and multisequence images were obtained through the abdomen. MRCP sequences with 3D coronal MIP reconstructed images are also obtained. CONTRAST: Clariscan VOLUME: 17 mL COMPARISON: None FINDINGS: Liver: Multiple benign liver cysts the largest in the left liver lobe measuring 16 mm. Patent portal and hepatic veins. No solid enhancing mass. No drop in signal on out of phase imaging to suggest hepatic steatosis. Biliary: Normal gallbladder and biliary tree. The common bile duct measured 5 mm and tapers 3 mm of the level of the pancreatic head. No choledocholithiasis. Pancreas: Normal signal. No mass. No ductal dilatation. Normal T1 signal. Spleen: Normal Adrenals: Normal Kidneys: Normal symmetrical pattern of enhancement. No solid mass. No hydronephrosis. Peritoneum / Retroperitoneum: Normal. No retroperitoneal lymphadenopathy or mass. Lymph Nodes: No lymphadenopathy Major Vessels: Normal flow void. No aneurysm. Bones: Unremarkable signal. Scoliosis. Multilevel spondylosis. Lung bases: Normal signal. Bowel: Normal signal. No obstruction. MRI/MRI Abd WITH and W/O Contrast IMPRESSION: Benign hepatic cysts. Normal biliary tree. Normal pancreas. Reading Location: [id number]
== END | disposition home or self-care (01) ==
LOC: MRI 16:13
PROVIDERS: PCP Family Medicine; Referring Provider Family Medicine; Visit Provider Family Medicine
DX: R74.8 Abnormal levels of other serum enzymes (principal); K83.8 Other specified diseases of biliary tract
CPT/HCPCS: 74183; A9575; A4216